=== PATIENT | male | born 1990 | race African-American/Black ===

== ENCOUNTER 2017-03-15 20:14 | Emergency (ER) | payer SELFPAY ==
[~2017-03-15] VITALS: Ht 170.2 cm; Wt 75.0 kg
[~2017-03-15 20:14] MED LIST: IOHEXOL-300 100 ML BOTTLE ONE; SODIUM CHLORIDE 0.9% 10ML VIAL ONE
[2017-03-15] MEDS ORDERED: SODIUM CHLORIDE 0.9% 1,000 ML IV ONE (22:36)
[2017-03-15] MEDS ORDERED: ONDANSETRON HCL 4MG/2ML VIAL IV STA (22:36)
[2017-03-15] MEDS ORDERED: MORPHINE SULFATE 4 MG/ML CPJ (NOT FOR IM USE) IV STA (22:36)
[2017-03-15 23:15] LABS: BASOPHILS % 0.7 % (0.0-2.0); EOSINOPHILS % 0.5 % (0.0-5.0); HEMATOCRIT. 46.3 % (42.0-52.0); HEMOGLOBIN. 15.6 g/dL (14.0-18.0); LYMPHOCYTES % 30.6 % (20.0-50.0); MEAN CORPUSCULAR HGB CONC 33.6 g/dL (31.0-37.0); MEAN CORPUSCULAR VOLUME 86.4 fL (80.0-94.0); MEAN PLATELET VOLUME 8.1 fl (7.4-10.4); MONOCYTES % 7.5 % (2.0-8.0); NEUTROPHILS % 60.7 % (40.0-76.0); PLATELET 368 x1000/uL (130-400); RED BLOOD CELL COUNT 5.36 mill/uL (4.7-6.1); RED CELL DISTRIBUTION WIDTH 13.3 % (11.6-14.6); WHITE BLOOD COUNT 9.2 x1000/uL (4.5-11.0)
[2017-03-15 23:24] LABS: PARTIAL THROMBOPLASTIN TIME 29.4 sec (24.0-34.0); PROTHROMBIN TIME 10.5 sec
[2017-03-15 23:33] LABS: ALANINE AMINOTRANSFERASE 14 IU/L (13-61); ALBUMIN 3.5 g/dL (3.4-5.0); ANION GAP 14; CALCIUM 9.3 mg/dL (8.5-10.1); CARBON DIOXIDE 24 mEq/L (21-32); CHLORIDE 107 mEq/L (98-107); INDEX HEMOLYSI 1 (1-3); INDEX ICTERIC 1 (1-4); INDEX LIPEMIC 1 (1-3); LIPASE 357 IU/L (73-393); UREA NITROGEN BLOOD 9 mg/dL (7-21); eGFR > 60 mL/min (>60)
[2017-03-16 00:02] LABS: CLARITY URINE CLEAR (CLEAR); COLOR URINE DARK YELLOW (YELLOW); GLUCOSE URINE NEGATIVE (NEGATIVE); KETONES URINE 1+ (NEGATIVE); LEUKOCYTE ESTERASE URINE NEGATIVE (NEGATIVE); NITRITE URINE NEGATIVE (NEGATIVE); OCCULT BLOOD URINE NEGATIVE (NEGATIVE); PH URINE 5.5 (4.5-8.0); PROTEIN URINE TRACE (NEGATIVE); SPECIFIC GRAVITY URINE 1.038 (1.005-1.030)
[2017-03-16 00:26] LABS: SQUAMOUS EPITHELIAL CELL URINE NONE SEEN /lpf (RARE/1+)
[2017-03-16 00:27] LABS: BACTERIA URINE NONE SEEN; RBC URINE NONE SEEN /hpf (0-2); WBC URINE 0-2 /hpf (0-2)
[2017-03-16 03:33] VITALS: BP 115/77
== END 2017-03-16 03:39 | disposition home or self-care (01) ==
LOC: ER 22:47
DX: R10.32 Left lower quadrant pain (principal); R10.31 Right lower quadrant pain; K92.1 Melena; K59.00 Constipation, unspecified; R30.0 Dysuria; R50.9 Fever, unspecified; R11.10 Vomiting, unspecified; R03.0 Elevated blood-pressure reading, without diagnosis of hypertension; N50.819 Testicular pain, unspecified; F17.210 Nicotine dependence, cigarettes, uncomplicated; F10.10 Alcohol abuse, uncomplicated
CPT/HCPCS: 36415; 74177; 80053; 81001; 83690; 85025; 85610; 85730; 86850; 86900; 86901; 96361; 96374; 96375; 99285; A4216; J2270; J2405; J7030; Q9967; Z7610; 81003